=== PATIENT | male | born 1985 | race Caucasian/White ===

== ENCOUNTER 2016-10-14 00:58 | Emergency (ER) | payer OTHER ==
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
== END 2016-10-14 03:59 | disposition home or self-care (01) ==
LOC: CED 00:58
DX: S02.32XA Fracture of orbital floor, left side, initial encounter for closed fracture (principal); S02.40DA Maxillary fracture, left side, initial encounter for closed fracture; Y04.0XXA Assault by unarmed brawl or fight, initial encounter; Y99.0 Civilian activity done for income or pay
CPT/HCPCS: 70450; 70486; 99284